=== PATIENT | female | born 1990 | race Caucasian/White ===

== ENCOUNTER → 2020-03-30 | Outpatient (CLI) | payer OTHER ==
--- NOTE | 2020-03-30 19:10 | CONS ---
CONSULTATION DATE OF SERVICE: 03/30/2020 REASON FOR CONSULTATION: A 29-year-old lady who has been evaluated in the Sleep Center for significant excessive daytime sleepiness. HISTORY OF PRESENT ILLNESS/SLEEP-WAKE EVALUATION: Patient's usual sleep schedule is from 1 a.m. until 1-3 p.m. She does have problems with falling asleep and wakes up from sleep 3 times without nocturia. She has mild snoring. No history of significant movements at night. In the morning, patient wakes up tired, has difficulties paying attention, falling asleep during the day, worries about her sleep. Has problems with memory, concentration, irritability, depression and anxiety. [place] Sleepiness Scale in extremely high range of 19. She may take at least 1 nap a day but usually does not feel refreshed after nap. Does not see dreams during the nap. No history of hypnagogic hallucinations. No history of sleep paralysis or cataplexy. 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 Depression, anxiety, PTSD, hypertension, hyperlipidemia. MEDICATIONS: BuSpar, Effexor, Lyrica, Catapres, Plavix, Lipitor, baby aspirin, Tylenol. PAST SURGICAL HISTORY: Left ear drum rebuilt. SOCIAL HISTORY: Negative for smoking or using alcohol. FAMILY HISTORY: Insomnia, stroke, fibromyalgia, hypertension, hyperlipidemia. PHYSICAL EXAM: GENERAL: A 29-year-old lady without distress, walking with a cane. VITAL SIGNS: BP 131/82, HR 109, RR 16, height 5 feet 5 3/4 inches, weight 229.8 pounds with body mass index 37.2, temperature 98.3, oxygen saturation at room air 98%. HEENT: PERRLA, EOMI, evaluation of oropharynx showed tongue protrudes midline. Oropharynx Mallampati 2-3. NECK: Supple, no JVD. Thyroid is not palpable. Neck is 15-3/4 inches in circumference. LUNGS: Clear to percussion and to auscultation. Good air exchange. No wheezing or rhonchi. HEART: S1, S2 regular. No murmurs, gallops, or rubs. ABDOMEN: Soft and nontender. Bowel sounds are present. No organomegaly appreciated. EXTREMITIES: No clubbing or cyanosis. Pain at attachment of the left leg. DOORPERSON: Awake, alert, and oriented X3. Cranial nerves 2 to 7 intact. There is no fasciculation or atrophy. noted. No focal deficits observed. Walks with cane. IMPRESSION: 1. Snoring, multiple awakenings from sleep, sleepiness during the day, obesity, possible obstructive sleep apnea-hypopnea syndrome. 2. Significant excessive daytime sleepiness with [place] Sleepiness Scale of 19 and very long periods of sleep without history of cataplexy or hypnagogic hallucinations dictating necessity to include idiopathic hypersomnia in differential diagnosis. 3. Obesity, BMI 37.2. 4. Status post brain stem stoke in February of 2019 with residual pain on the left side of the body, neck pain, and dry eyes. 5. History of posttraumatic stress disorder. 6. History of depression. 7. History of anxiety. 8. Hypertension. 9. Hyperlipidemia. 10.Sleep delay syndrome. PLAN: 1. Polysomnography for evaluation of patient's breathing during sleep. 2. CPAP/BiPAP titration if sleep study confirms obstructive sleep apnea-hypopnea syndrome. 3. Preferable position during sleep on the side. 4. No driving if patient feels any sleepiness. 5. I will see patient for follow up visit to explain results of testing and following plan. 6. Multiple sleep latency test if sleep study is negative for obstructive sleep apnea- hypopnea syndrome. 7. As much as possible bright sunlight exposure in the morning to move sleep cycle earlier. Thank you very much for referring this patient for consultation. Faizan Wang MD, PhD, FAASM Diplomat of [employer] Can Operator of [facility] [place] MMODL / IJN: [id number] /
== END | disposition home or self-care (01) ==
LOC: SLEEP 16:55
PROVIDERS: ATTEND Internal Medicine
DX: R06.83 Snoring (principal); E66.9 Obesity, unspecified; Z68.37 Body mass index [BMI] 37.0-37.9, adult; I10 Essential (primary) hypertension; E78.5 Hyperlipidemia, unspecified; Z86.59 Personal history of other mental and behavioral disorders; G47.21 Circadian rhythm sleep disorder, delayed sleep phase type
CPT/HCPCS: 99201

== ENCOUNTER → 2020-08-09 | Outpatient (CLI) | payer OTHER ==
--- NOTE | 2020-08-09 16:41 | SFUN ---
SLEEP CENTER FOLLOW UP NOTE DATE OF SERVICE: 08/09/2020 This patient is a 29-year-old lady who has been followed in Sleep Center for treatment of obstructive sleep apnea-hypopnea syndrome. Recently the patient had a polysomnogram which showed moderate obstructive sleep apnea and then she had CPAP titration. Respiration was under control with CPAP and she received her CPAP unit. Today is her first visit after she was started on treatment with CPAP. I discussed results of her sleep studies with the patient in detail. After starting treatment with CPAP, the patient feels better. Her alertness has improved. During her previous visit, the patient was more sleepy. Today [place] Sleepiness Scale is 8, which is in normal range. I checked her CPAP unit. Range of the pressure is 5 to 14. Usage is 25/30 nights, and 12/30 nights for more than 4 hours. Average usage is 3.9 hours per night. Leak is 5 L/minute, which is minimal. Apnea-hypopnea index is 3.1, which is normal. Sometimes the patient is experiencing dryness in the mouth, although she is using a full-face mask. Humidity was off in her CPAP unit. CURRENT MEDICATIONS: BuSpar, Effexor, Lyrica, Catapres, Plavix, Lipitor, aspirin, Tylenol. PHYSICAL EXAMINATION: GENERAL: A pleasant patient in no distress. VITAL SIGNS: BP 146/80, HR 96, RR 15, weight 228, temperature 98.3, oxygen saturation at room air 100%. HEENT: PERRLA, EOMI. Evaluation of oropharynx showed tongue protrudes midline. NECK: Supple. No JVD. Thyroid is not palpable. LUNGS: Clear to percussion and to auscultation. Good air exchange. No wheezing or rhonchi. HEART: S1, S2 regular. No murmurs, gallops or rubs. ABDOMEN: Soft. No tenderness. EXTREMITIES: No clubbing or cyanosis. BUS AIDE: Patient walks with a cane. IMPRESSION: 1. Moderate obstructive sleep apnea-hypopnea syndrome; apnea-hypopnea index 15.5 with oxygen desaturation to 70.2%, under control with CPAP. 2. History of a brainstem stroke in February of 2019. 3. History of post-traumatic stress disorder. 4. History of depression. 5. History of anxiety. 6. Hypertension. 7. Hyperlipidemia. PLAN: 1. I adjusted humidity to the level of 4. 2. I discussed with the patient the necessity of using equipment every night for the whole night. The patient promised to follow recommendations. 3. Sleep hygiene with regular time in bed for at least 7-1/2 to 8 hours. 4. Precautions related to driving. No driving if feeling sleepiness. 5. I will maintain all necessary prescription for PAP supplies including mask, tube, filters. 6. Watching weight. 7. Follow-up visit in 6 months or earlier if patient has any problems. Thank you very much for allowing me to participate in the management of your patient. Sincerely, Faizan Wang MD, PhD, FAASM Diplomat of [employer] [facility] [place] MMODL / ELOYN: [id number] /
== END | disposition home or self-care (01) ==
LOC: SLEEP 13:23
PROVIDERS: ATTEND Internal Medicine
DX: G47.33 Obstructive sleep apnea (adult) (pediatric) (principal); I10 Essential (primary) hypertension; E78.5 Hyperlipidemia, unspecified; Z86.73 Personal history of transient ischemic attack (TIA), and cerebral infarction without residual deficits; Z86.59 Personal history of other mental and behavioral disorders; Z99.89 Dependence on other enabling machines and devices